=== PATIENT | female | born 1980 | race Caucasian/White ===

== ENCOUNTER 2016-12-12 00:45 | Emergency (ER) | payer OTHER ==
--- NOTE | ~2016-12-12 | ER ---
PATIENT'S NAME: FRANCOISE ALEXIS [facility] AGE: 36 Y [address] ROOM: [place] [address] LOCATION: ED ADMIT DATE: 12/12/2016 ER/Outpatient Report DISCHARGE DATE: 12/12/2016 FAMILY PHYSICIAN: Physician, Unknown ATTENDING PHYSICIAN: Alivia Mcnamara HISTORY OF PRESENT ILLNESS: A 36-year-old female who presents today with chest pain that has been going on for about 4.5 hours. It is worse with palpation. It is sharp and she rates it an 8/10. She also reports some shortness of breath as well, but only when questioned directly. Denies any nausea, vomiting, weakness, or any diaphoresis. She says that it is in the center of her chest. She states that she was working out when it started. She does have a history of coronary spasm, for which she sees Dr. Cespedes and takes nitroglycerin and amlodipine, and she says she took that tonight, but it did not help, so that is why she came in. She is currently in senior care for drugs and alcohol charges. No other complaints at this time. PAST MEDICAL HISTORY: Coronary spasm. SURGICAL HISTORY: x2. SOCIAL HISTORY: She smokes half-a-pack per day, daily alcohol use when she is not in senior care. Drug use includes meth, but no cocaine. No other drugs. MEDS: Please see med list. ALLERGIES: AMOXICILLIN AND PENICILLIN. REVIEW OF SYSTEMS: Reviewed by me and negative with the exception of those discussed in the HPI. PHYSICAL EXAMINATION: VITAL SIGNS: The patient is 5 feet 9 inches, she weighs 87.2 kilos, blood pressure 127/81, heart rate is 64, respiratory rate 18, temperature is 98.2, saturating 96% on room air. GCS is 15. GENERAL: The patient is very well-appearing. She is nontoxic. She walks into the ER without any difficulty. She is alert and oriented x4. GCS is 15. HEART: Heart rate is regular rate and rhythm. She has strong pulses. She has no murmurs. She does have chest wall tenderness when pressing in her PATIENT'S NAME: FRANCOISE ALEXIS [facility] AGE: 36 Y [address] ROOM: [place] [id number] LOCATION: ED ADMIT DATE: 12/12/2016 ER/Outpatient Report DISCHARGE DATE: 12/12/2016 FAMILY PHYSICIAN: Physician, Unknown ATTENDING PHYSICIAN: Alivia Mcnamara midsternal area, but appears normal on inspection. Bilateral breath sounds are clear. She has no wheezing, rales, or rhonchi. ABDOMEN: Soft, nontender, nondistended. She has no guarding or rebound. EXTREMITIES: She has no pedal edema and she moves all of her extremities. ER COURSE: An EKG was done, which on my read she has sort of sinus bradycardia. Her CT interval is 119 milliseconds, QTc is 389. QRS is not widened. She does not have any ST elevation or ST depression. A lab work was sent including a CBC, CMP, and cardiac enzymes. So, CBC shows a white count of 9.7, H and H is 13.6/39.4, platelets are 370. No bandemia. CMS shows a sodium 143, potassium 5, but hemolyzed. Chloride was 115, glucose 89, BUN 10 creatinine 0.5, alkaline phosphatase 79, AST elevated at 66, ALT elevated at 128. GFR greater than 60. Troponin was less than 0.04. CK-MB was 0.9. CPK was 138. The patient reassessed. She was given aspirin here as well. This is chest wall tenderness. She has normal lab work. As she does not appear in any acute distress now, we will have her follow up with her primary care doctor. IMPRESSION: Chest wall pain, chest pain, atypical. MD IBRAHIMA DAVIS/aydee /[id number] d: 12/12/16826 t: 12/13/16 1820, OUTPATIENT REPORT
[2016-12-12 02:23] LABS: BASOPHIL # 0.1 K/uL (0.0-0.2); BASOPHIL % 0.6 %; EOSINOPHIL # 0.4 K/uL (0.0-0.5); EOSINOPHIL % 3.6 %; HEMATOCRIT 39.4 % (33.0-46.0); HEMOGLOBIN 13.6 g/dL (11.0-15.0); IMMATURE GRANULOCYTE # 0.1 K/uL (0.0-0.3); IMMATURE GRANULOCYTE % 1.3 %; LYMPHOCYTE # 3.4 K/uL (0.8-4.0); LYMPHOCYTE % 35.3 %; MCH 29.6 pg (27.0-34.0); MCHC 34.5 gm/dL (32.0-36.5); MCV 85.8 fl (83.0-98.0); MONOCYTE % 9.8 %; MPV 8.8 fl (9.4-12.4); NEUTROPHIL # (ANC) 4.8 K/uL (1.8-7.8); NEUTROPHIL % 49.4 %; NRBC % 0 /100WBC (0-0.00); PLATELET COUNT 370 K/uL (150-450); RBC 4.59 M/uL (3.50-5.50); RDW-CV 13.3 % (11.9-14.6); WBC 9.7 K/uL (4.0-11.0)
[2016-12-12 02:29] LABS: ALBUMIN 3.7 gm/dL (3.5-5.0); CREATININE 0.5 mg/dL (0.5-1.1); ESTIMATED GFR (MDRD EQUATION) > 60
[2016-12-12 02:30] LABS: BLOOD UREA NITROGEN 10 mg/dL (6-24); CHLORIDE 115 mMol/L (96-110); SODIUM 143 mMol/L (135-145); TOTAL PROTEIN 7.3 g/dL (6.0-8.4)
[2016-12-12 02:31] LABS: ALK PHOS 79 IU/L (33-138); ALT 128 IU/L (12-78); AST 66 IU/L (10-40); CPK 138 IU/L (21-215); TOTAL BILIRUBIN 0.3 mg/dL (0.0-1.5)
== END 2016-12-12 02:50 | disposition disaster alternative care site (69) ==
LOC: GMED 00:45
PROVIDERS: Emergency Medicine
DX: R07.89 Other chest pain (principal); F17.210 Nicotine dependence, cigarettes, uncomplicated; Z88.0 Allergy status to penicillin; Z88.1 Allergy status to other antibiotic agents; Z79.899 Other long term (current) drug therapy

== ENCOUNTER 2017-03-05 13:44 | Emergency (ER) | payer SELFPAY ==
--- NOTE | ~2017-03-05 | ER ---
PATIENT'S NAME: FRANCOISE ALEXIS [facility] AGE: 36 Y [address] ROOM: [place] [address] LOCATION: ED ADMIT DATE: 03/05/2017 ER/Outpatient Report DISCHARGE DATE: 03/05/2017 FAMILY PHYSICIAN: Alfonso Ramirez MD ATTENDING PHYSICIAN: Martina Avalos Time of Arrival: 1344 hours. Time Seen: 1401 hours. CHIEF COMPLAINT: Abdominal pain and heavy menstrual bleeding. HISTORY OF PRESENT ILLNESS: The patient is a 36-year-old female who presents with a history of right lower abdominal pain at the right edge of her section scar that has been apparently been present off and on for 9 years. She was evaluated at [facility] Emergency Room on February 08 and February 09, had an ultrasound and a CAT scan done showing a soft tissue lesion in that area with no specific recommendations according to the patient, she said she was told that if she had increase in pain, to follow up here and someone would have to remove that. She has not seen her primary care physician or her senior sql server dba and yesterday she started her period which came at the right time for her, but it is heavier than normal. She is having to use a pad every 1 hour compared to usual every 3 hours. She is a G2, P2. She has had a tubal ligation. She is currently working at [employer] trying to apply and get a job. ALLERGIES: PENICILLIN AND AMOXICILLIN. CURRENT MEDICATIONS: 1. Amlodipine. 2. "Hydros" which she is out of. 3. Nitroglycerin p.r.n. MEDICAL PROBLEMS: Prinzmetal angina; polysubstance abuse, she was just in [place] for drug and alcohol rehab, history of methamphetamine and alcohol abuse according to the records; ADHD; and anxiety. PRIOR SURGERIES: section tubal ligation. SOCIAL HISTORY: The patient currently lives here in [place]. She has 2 children. She is a G2, P2. She is attempting to get a job through [employer]. Tobacco use, half a PATIENT'S NAME: FRANCOISE ALEXIS [facility] AGE: 36 Y [address] ROOM: [place] [address] LOCATION: ED ADMIT DATE: 03/05/2017 ER/Outpatient Report DISCHARGE DATE: 03/05/2017 FAMILY PHYSICIAN: Alfonso Ramirez MD ATTENDING PHYSICIAN: Martina Avalos A pack per day. Alcohol use, none currently. Drug use, none currently. She said she has 160 days without substances. FAMILY HISTORY: No pertinent family history identified. REVIEW OF SYSTEMS: All systems reviewed and negative other than what is noted in the HPI. PHYSICAL EXAMINATION: VITAL SIGNS: Weight 82 kg. Blood pressure 106/56, pulse 77, respirations 20, temperature 98.2, and saturations 94% on room air. GENERAL: A 36-year-old female, in no acute distress. HEENT: Head: Normocephalic, atraumatic. Ears: TMs translucent, both ears. Eyes: Pupils are equal and reactive to light and accommodation. Extraocular movements intact. Nose: Mucosa pink. No lesions or drainage. Mouth: No lesions. Pharynx benign. NECK: Supple. No lymphadenopathy. No nuchal rigidity. LUNGS: Clear to auscultation. HEART: Regular rate and rhythm. No murmur, rub, or gallop. ABDOMEN: Soft, nondistended, nontender except in the area of her section scar just to the right. There is no surrounding erythema. There is a palpable subcutaneous mass measuring about 2 cm. EXTREMITIES: She has no lower extremity edema. NEURO: Normal. DISCUSSION: Review of her records from [facility] from February 08 and , she had an ultrasound dated February 08 showing a heterogeneous ovoid mass measuring 3.2 x 1.3 cm in the subcutaneous tissues region of the section scar. She had lab work reflecting an AST of 42 hours and an ALT of 92. CBC was normal and a hemoglobin was 13.7. Discharge instructions were to follow up with primary care physician for further management. We originally did not have the record of her abdominal CT results, we did fax and get those dated February 11; a 2.7 cm solid enhancing soft tissue mass along the right lateral aspect of the section scar in the lower anterior abdominal wall, which could be granulation tissue, scar endometrioma, less likely malignancy such as sarcoma. Consider biopsy or close followup. Today, hemoglobin stable at 13.6, hematocrit 39.8, platelets 350, white count 6.5 with a normal differential. Sodium 144, potassium 3.7, chloride 113, CO2 23, BUN 10, creatinine 0.7, and blood sugar 97. AST elevated at 45, ALT 97, those are stable compared to the labs that were done in [place] on February 08. HCG less than 1. IMPRESSION: PATIENT'S NAME: FRANCOISE ALEXIS [facility] AGE: 36 Y [address] ROOM: [place], [place] [address] LOCATION: [facility] ADMIT DATE: 03/05/2017 ER/Outpatient Report DISCHARGE DATE: 03/05/2017 FAMILY PHYSICIAN: Alfonso Ramirez MD ATTENDING PHYSICIAN: Martina Avalos 1. Right section scar tenderness and soft tissue mass. I talked with Dr. Torres who is electronic masking system operator for Dr. Ochoa. Recommended followup appointment with Dr. Ochoa, the senior sql server dba, who did her section to discuss removal versus biopsy. 2. Polysubstance abuse. The patient was given Toradol 30 mg IM here in the emergency room. She stated that that did not really assist with her pain and on a couple of occasions, indicated she would like narcotic pain medication. With her history of polysubstance abuse, I advised Tylenol or Advil for pain, ice or heat, and follow up with Dr. Ochoa next week. 3. Mildly elevated liver enzymes. 4. Menometrorrhagia. The patient is hemodynamically stable and the patient's hemoglobin is stable. MD THEO FALLON/modl /[id number] d: 03/05/17 2159 t: 03/09/17 0911, OUTPATIENT REPORT
[2017-03-05 14:33] LABS: BASOPHIL # 0.1 K/uL (0.0-0.2); BASOPHIL % 0.8 %; EOSINOPHIL # 0.3 K/uL (0.0-0.5); HEMATOCRIT 39.8 % (33.0-46.0); HEMOGLOBIN 13.6 g/dL (11.0-15.0); IMMATURE GRANULOCYTE % 0.2 %; LYMPHOCYTE # 2.4 K/uL (0.8-4.0); LYMPHOCYTE % 36.7 %; MCH 30.4 pg (27.0-34.0); MCHC 34.2 gm/dL (32.0-36.5); MCV 88.8 fl (83.0-98.0); MONOCYTE # 0.4 K/uL (0.0-1.0); MONOCYTE % 6.3 %; MPV 8.8 fl (9.4-12.4); NEUTROPHIL # (ANC) 3.3 K/uL (1.8-7.8); NRBC % 0 /100WBC (0-0.00); PLATELET COUNT 350 K/uL (150-450); RBC 4.48 M/uL (3.50-5.50); RDW-CV 12.9 % (11.9-14.6); WBC 6.5 K/uL (4.0-11.0)
[2017-03-05 14:52] LABS: ALBUMIN 3.7 gm/dL (3.5-5.0); ALK PHOS 79 IU/L (33-138); ALT 97 IU/L (12-78); ANION GAP 11.7 (10.0-19.0); AST 45 IU/L (10-40); BLOOD UREA NITROGEN 10 mg/dL (6-24); CALCIUM 8.3 mg/dL (8.5-10.5); CHLORIDE 113 mMol/L (96-110); CO2 23 mMol/L (22-32); CREATININE 0.7 mg/dL (0.5-1.1); POTASSIUM 3.7 mMol/L (3.7-5.1); SODIUM 144 mMol/L (135-145); TOTAL PROTEIN 7.6 g/dL (6.0-8.4)
[2017-03-05 14:53] LABS: TOTAL BILIRUBIN 0.4 mg/dL (0.0-1.5)
== END 2017-03-05 15:16 | disposition disaster alternative care site (69) ==
LOC: GMED 13:44
PROVIDERS: Family Medicine
DX: R19.03 Right lower quadrant abdominal swelling, mass and lump (principal); L76.82 Other postprocedural complications of skin and subcutaneous tissue; F19.10 Other psychoactive substance abuse, uncomplicated; N92.1 Excessive and frequent menstruation with irregular cycle; R74.8 Abnormal levels of other serum enzymes; I20.1 Angina pectoris with documented spasm; F17.210 Nicotine dependence, cigarettes, uncomplicated; Z88.0 Allergy status to penicillin; Z88.1 Allergy status to other antibiotic agents; Z79.899 Other long term (current) drug therapy; Z98.51 Tubal ligation status
CPT/HCPCS: J1885

== ENCOUNTER 2017-03-11 08:26 | Emergency (ER) | payer SELFPAY ==
--- NOTE | ~2017-03-11 | ER ---
PATIENT'S NAME: FRANCOISE ALEXIS [facility] AGE: 36 Y [address] ROOM: [place] [address] LOCATION: [facility] ADMIT DATE: 03/11/2017 ER/Outpatient Report DISCHARGE DATE: 03/11/2017 FAMILY PHYSICIAN: Alfonso Ramirez MD ATTENDING PHYSICIAN: Abigail Richardson TIME OF ARRIVAL: 0826 hours. TIME SEEN: 1030 hours. IDENTIFICATION: A 36-year-old female. CHIEF COMPLAINT: Abdominal pain. HISTORY OF PRESENT ILLNESS: The patient is a 36-year-old female. There was a delay in seeing her here in the emergency room because in the emergency room multiple acute patients in ambulances check-in during this time frame. She is a 36-year-old female, presenting with right lower abdominal pain that she has had off and on for 9 years. She was just seen here on March 05. On today's examination, the patient states that she is continuing to have pain. She did not go to the [facility] office where she was recommended to be seen for this for definitive care because of cost. When she was seen here on March 05, her period had started on the which was the right time that was heavier than normal. Apparently on the , her period stopped but then started again and she is now concerned about bleeding although it is not heavy bleeding. She has had no nausea or vomiting. No constipation or diarrhea. No other problems or concerns. ALLERGIES: TO PENICILLIN AND AMOXICILLIN. CURRENT MEDICATIONS: 1. Amlodipine 5 mg daily. 2. Nitroglycerin as needed. PAST MEDICAL PROBLEMS: Prinzmetal angina. Polysubstance abuse. She was just in [place] for drug and alcohol rehab. History of methamphetamine and alcohol abuse according to records. ADHD and anxiety. PATIENT'S NAME: FRANCOISE ALEXIS [facility] AGE: 36 Y [address] ROOM: [place] [address] LOCATION: [facility] ADMIT DATE: 03/11/2017 ER/Outpatient Report DISCHARGE DATE: 03/11/2017 FAMILY PHYSICIAN: Alfonso Ramirez MD ATTENDING PHYSICIAN: Abigail Richardson PRIOR SURGERIES: section and tubal ligation. SOCIAL HISTORY: The patient currently is living here in [place]. She has 2 children. She is attempting to get a job through [employer]. Tobacco use, half pack per day. Alcohol use, last use 162 days ago. FAMILY HISTORY: No pertinent family history identified. REVIEW OF SYSTEMS: All systems reviewed negative other than what is noted in the HPI. Other than now she says she has been having loose stools for a week. No blood in her stools. No dark, tarry, or black stools. She did not tell us about any loose stools when she was here on the . She said she is having 2 to 3 loose stools per day. PHYSICAL EXAMINATION: VITAL SIGNS: Weight 82 kg. Blood pressure 112/59, pulse 84, respirations 20, temperature 96.1, and saturations 98%. GENERAL: An anxious female who is irritable at this time in no acute distress. Moving well throughout the exam room, interacting with her children, in no acute distress. HEENT: Unremarkable. LUNGS: Clear to auscultation. HEART: Regular rate and rhythm. ABDOMEN: Soft and nondistended. No erythema. She is tender to palpation on the right aspect of her section scar. No rebound or guarding. No CVA tenderness. She has a palpable subcutaneous mass measuring 1 to 2 cm. No lower extremity edema. No calf tenderness. NEURO EXAM: No focal deficit. DISCUSSION: Again, she brought her records from [facility] which were again reviewed with the patient. The patient became irritable during the history portion of the examination. I did advise that we did draw her blood to check for a CBC. Her daughter had gone to the vending machine and got some chips. She told her daughter "get your chips and lets go" and slung her purse over shoulder and was ready to leave. I asked her to wait for her CBC results which she did not. They did leave without any discharge instructions after I told her that she would not be receiving any narcotic pain medication. Hemoglobin did return at 13.7, which is stable from the 28, hematocrit 40.4, platelets 320, and white count 6.8 with a normal differential. I did advise the patient that she needed to follow up with exhaust worker for more definitive care. Tylenol PATIENT'S NAME: FRANCOISE ALEXIS [facility] AGE: 36 Y [address] ROOM: [place], [place] [address] LOCATION: [facility] ADMIT DATE: 03/11/2017 ER/Outpatient Report DISCHARGE DATE: 03/11/2017 FAMILY PHYSICIAN: Alfonso Ramirez MD ATTENDING PHYSICIAN: Abigail Richardson or marnie would be recommended that she would not be receiving any narcotic pain medication. She informed me she is not asking for any narcotic pain medication and then proceeded to ask for Ultram. IMPRESSION AND PLAN: 1. Abdominal wall mass. I again strongly recommended followup appointment with Dr. Ochoa for removal versus biopsy. Tylenol or ibuprofen for pain. Warm compresses for pain. I did advise her that this does need to be followed up with for certain through either primary care physician or through the exhaust worker. 2. Polysubstance abuse. The patient did request pain medication throughout specifically requesting Ultram. I advised that Tylenol or ibuprofen would be what I would give her. 3. Menometrorrhagia by her report. Hemoglobin is stable. The patient again did leave without receiving her instructions and did not take her paperwork from [facility] even with her. ABIGAIL RICHARDSON MD CAR/modl /[id number] d: 03/11/17 1538 t: 03/12/17 1735, OUTPATIENT REPORT
[2017-03-11 11:03] LABS: BASOPHIL # 0.1 K/uL (0.0-0.2); BASOPHIL % 0.9 %; EOSINOPHIL # 0.3 K/uL (0.0-0.5); EOSINOPHIL % 4.4 %; HEMATOCRIT 40.4 % (33.0-46.0); HEMOGLOBIN 13.7 g/dL (11.0-15.0); IMMATURE GRANULOCYTE % 0.1 %; LYMPHOCYTE # 2.2 K/uL (0.8-4.0); LYMPHOCYTE % 32.2 %; MCHC 33.9 gm/dL (32.0-36.5); MCV 88.4 fl (83.0-98.0); MONOCYTE # 0.6 K/uL (0.0-1.0); MONOCYTE % 8.3 %; MPV 8.8 fl (9.4-12.4); NEUTROPHIL # (ANC) 3.7 K/uL (1.8-7.8); NEUTROPHIL % 54.1 %; NRBC % 0 /100WBC (0-0.00); PLATELET COUNT 320 K/uL (150-450); RBC 4.57 M/uL (3.50-5.50); RDW-CV 13.1 % (11.9-14.6); WBC 6.8 K/uL (4.0-11.0)
== END 2017-03-11 11:06 | disposition disaster alternative care site (69) ==
LOC: GMED 08:26
PROVIDERS: Family Medicine
DX: R19.00 Intra-abdominal and pelvic swelling, mass and lump, unspecified site (principal); F19.10 Other psychoactive substance abuse, uncomplicated; N92.1 Excessive and frequent menstruation with irregular cycle; F90.9 Attention-deficit hyperactivity disorder, unspecified type; F41.9 Anxiety disorder, unspecified; Z88.0 Allergy status to penicillin; Z88.1 Allergy status to other antibiotic agents; Z79.899 Other long term (current) drug therapy